=== PATIENT | male | born 1970 | race Caucasian/White ===

== ENCOUNTER 2016-04-01 17:43 | Emergency (ER) | payer OTHER ==
[2016-04-01 18:35] VITALS: BP 157/85; PULSE 105; TEMP 99.7; BMI 31.3
[2016-04-01 18:48] LABS: AUTOMATED BASOPHIL 0.9 % (0-2); AUTOMATED EOSINOPHIL 0.4 % (0-5); AUTOMATED LYMPH 16.2 % (17-44); AUTOMATED MONOCYTE 8.3 % (3-10); AUTOMATED NEUTROPHIL 74.2 % (45-76); MPV 7.4 fL (7.4-10.4)
[2016-04-01 18:59] LABS: BLOOD UREA NITROGEN 13 MG/DL (9-20); CALCIUM 10.2 MG/DL (8.4-10.2); CALCULATED OSMOLALITY 274 MOs/Kg (270-290); CHLORIDE 106 mEq/L (98-107); GLUCOSE 115 MG/DL (70-99); SODIUM LEVEL 142 mEq/L (137-146); TOTAL PROTEIN 8.3 G/DL (6.3-8.2)
[2016-04-01 19:03] LABS: PARTIAL THROMB. TIME 25.7 SEC (22-35)
== END 2016-04-01 21:00 | disposition left against medical advice (07) ==
LOC: ED 17:43
DX: R07.9 Chest pain, unspecified (principal); R06.02 Shortness of breath; Z53.21 Procedure and treatment not carried out due to patient leaving prior to being seen by health care provider
CPT/HCPCS: 80053; 83880; 84484; 85025; 85610; 85730; 99281

== ENCOUNTER 2016-04-22 13:55 | Emergency (ER) | payer SELFPAY ==
[2016-04-22 14:06] VITALS: TEMP 98; BMI 31.0
[2016-04-22 14:25] LABS: ALL NEG? NO
[2016-04-22 14:44] LABS: LEUKOCYTES/URINE NEG (NEGATIVE); NITRITE/URINE NEG (NEGATIVE); RBC/URINE 30-40 (0-2); URINE OCCULT BLOOD 3+ (NEG/TRACE); WBC/URINE 0-2 (0-2)
[2016-04-22 14:46] LABS: MDMA* NEG (NEGATIVE); METHAMPHETAMINES NEG (NEGATIVE); OXYCODONE *POSITIVE* (NEGATIVE)
[2016-04-22 15:23] VITALS: BP 159/97; PULSE 74
[2016-04-22] MEDS ORDERED: KETOROLAC TROMETHAMINE 10 MG TAB PO ONE (15:23)
[2016-04-22] MEDS ORDERED: OXYCODONE HCL 5 MG TABLET PO ONE (15:23)
--- NOTE | 2016-04-22 15:23 | EDPRACDOC ---
- General Information Chief Complaint: Back Pain Stated Complaint: LT SIDED BACK PAIN HX KIDNEY STONES Time Seen by Provider: 04/22/16 14:56 Information Source: Patient Home Medications: Home Medications Clonazepam [Klonopin] 1 mg PO BID PRN 03/07/15 Tramadol HCl [Ultram] 50 mg PO TID 11/16/15 Hydrocodone Bit/Acetaminophen [Hydrocodon-Acetaminophen 5-325] 1 tab PO Q6H PRN #14 tab 12/22/15 Losartan Potassium 100 mg PO DAILY 12/22/15 Paroxetine HCl 25 mg PO DAILY 12/22/15 Tamsulosin HCl [Flomax] 0.4 mg PO QAM #7 cap 12/22/15 Hydrocodone Bit/Acetaminophen [Bruce 5-325 Tablet] 1 each PO Q4H #15 tab Ketorolac Tromethamine [Toradol] 10 mg PO Q6H PRN #12 tab 04/22/16 Tamsulosin HCl [Flomax] 0.4 mg PO QAM #7 cap 04/22/16 Allergies/Adverse Reactions: Allergies Allergy/AdvReac Type Severity Reaction Status Date / Time No Known Allergies Allergy Verified 04/22/16 14:06 - History of Present Illness Onset: 1 DAYS HPI: PT PRESENTS TODAY WITH LEFT FLANK PAIN THAT BEGAN LAST NIGHT. PT STATES PMH OF STONES AND PAIN FEELS THE SAME PREVIOUS. SOME ASSOCIATED NAUSEA. DENIES FEVER, VOMITING/DIARRHEA, ABD PAIN, TESTICULAR PAIN. NO APPARENT DISTRESS. Pain Began: Reports: Spontaneous Pain Location: Reports: CVA Tenderness Pain Severity: Moderate Pain Quality: Reports: Cramping, Sharp Oral Intake: Normal Urinary Output: Normal Modifying Factors: improves with: Nothing Relevant History of: Reports: Urolithiasis Associated Signs and Symptoms: Reports: Hematuria, Nausea ED Past Medical History - History Reviewed Yes Nurses notes reviewed and agree except as marked - Patient Medical History Cardiac History: Reports: Hypertension, Hypercholesterolemia GI/ History: Reports: Kidney Stones Psychological History: Reports: Anxiety. Denies: Depression Additional Past Medical History: Kidney Stones - Family Medical History Reports: Cancer - Social Medical History Smoking Status: Never smoker EDM Review of Systems - Review of Systems ROS Negative Except as Marked: Yes All systems reviewed and were negative except as marked Constitutional: No Symptoms Reported Respiratory: No Symptoms Reported Cardiovascular: No Symptoms Reported Gastrointestinal: No Symptoms Reported Genitourinary: Dysuria, Hematuria, Flank Pain Neurological: No Symptoms Reported Musculoskeletal: No Symptoms Reported Integumentary: No Symptoms Reported - Physical Exam Constitutional: Alert (Awake), No apparent distress Oriented to: Time, Person, Place Last recorded Vital Signs: Last Vital Signs Temp 98 F 04/22/16 14:01 Pulse 89 04/22/16 14:01 Resp 20 04/22/16 14:01 BP 179/80 04/22/16 14:01 Pulse Ox 97 04/22/16 14:01 Oxygen Pulse Oxygen Saturation 97 O2 Device Oxygen Flow Rate Fraction of Inspired Oxygen ( FIO2) - HEENT Head: Normal Eye Exam: Normal Neck: Normal, Denies Pain, Midline - Respiratory/Cardiovascular Respiratory: Normal - CTA Cardiovascular: Normal - GI Palpation: Normal Tenderness: Non tender - Musculoskeletal Back: CVA Tenderness Extremities: Normal - Integumentary Skin: Normal Lymphatics: Normal - Neurologic Cerebellar: Normal Mood Description: Normal Thought: Coherent Perception: Normal - Results Urine Color Yellow 04/22/16 13:10 Urine Clarity Clear 04/22/16 13:10 Urine pH 6.0 (5.0-8.0) 04/22/16 13:10 Ur Specific Warren 1.005 (1.003-1.035) 04/22/16 13:10 Urine Protein Neg (NEG/TRACE) 04/22/16 13:10 Urine Glucose (UA) Neg (NEGATIVE) 04/22/16 13:10 Urine Ketones Neg (NEGATIVE) 04/22/16 13:10 Urine Occult Blood 3+ (NEG/TRACE) H 04/22/16 13:10 Urine Nitrite Neg (NEGATIVE) 04/22/16 13:10 Urine Bilirubin Neg (NEGATIVE) 04/22/16 13:10 Urine Urobilinogen <2.0 MG/DL (0-1) 04/22/16 13:10 Ur Leukocyte Esterase Neg (NEGATIVE) 04/22/16 13:10 Urine RBC 30-40 (0-2) H 04/22/16 13:10 Urine WBC 0-2 (0-2) 04/22/16 13:10 Ur Epithelial Cells Occ 04/22/16 13:10 Urine Mucus Occ (NEG/OCC) 04/22/16 13:10 Urine Opiates Screen Neg (NEGATIVE) 04/22/16 13:10 Ur Oxycodone Screen *positive* (NEGATIVE) H 04/22/16 13:10 Urine Methadone Screen Neg (NEGATIVE) 04/22/16 13:10 Ur Barbiturates Screen Neg (NEGATIVE) 04/22/16 13:10 Ur Tricyclics Screen Neg (NEGATIVE) 04/22/16 13:10 Ur Phencyclidine Scrn Neg (NEGATIVE) 04/22/16 13:10 Ur Amphetamines Screen Neg (NEGATIVE) 04/22/16 13:10 U Methamphetamines Scrn Neg (NEGATIVE) 04/22/16 13:10 Urine MDMA Screen Neg (NEGATIVE) 04/22/16 13:10 U Benzodiazepines Scrn *positive* (NEGATIVE) H 04/22/16 13:10 Urine Cocaine Screen Neg (NEGATIVE) 04/22/16 13:10 Ur THC Screen Neg (NEGATIVE) 04/22/16 13:10 Lab Results 04/22/16 04/22/16 13:10 13:10 Urine Color Yellow Urine Clarity Clear Urine pH 6.0 Ur Specific Warren 1.005 Urine Protein Neg Urine Glucose (UA) Neg Urine Ketones Neg Urine Occult Blood 3+ H Urine Nitrite Neg Urine Bilirubin Neg Urine Urobilinogen <2.0 Ur Leukocyte Esterase Neg Urine RBC 30-40 H Urine WBC 0-2 Ur Epithelial Cells Occ Urine Mucus Occ Urine Opiates Screen Neg Ur Oxycodone Screen *positive* H Urine Methadone Screen Neg Ur Barbiturates Screen Neg Ur Tricyclics Screen Neg Ur Phencyclidine Scrn Neg Ur Amphetamines Screen Neg U Methamphetamines Scrn Neg Urine MDMA Screen Neg U Benzodiazepines Scrn *positive* H Urine Cocaine Screen Neg Ur THC Screen Neg - Additional Information OLD RECORDS REVIEWED; PT HAS HAD SEVERAL CT UROGRAMS IN THE PAST AND HAVE ONLY FOUND SMALL PUNCTATE RENAL STONES W/OUT OBSTRUCTION OR HYDRONEPHROSIS. PT DOES NOT APPEAR TO BE IN DISTRESS. NO FEVER/VOMITING. NO CLINICAL INDICATION FOR FURTHER. Decision Time to Discharge: 15:21 - Departure Disposition: Home Condition: Good Final Diagnosis: Nephrolithiasis, Hematuria Instructions: Kidney Stones (ED) Education/Counseling Given To: Patient Education/Counseling Given Regarding: Diagnosis, Treatment, Follow Up Referrals: Anamaria Hand MD [Primary Care Provider] - One Week Arnulfo Kerr MD [Staff Physician] - One Week Prescriptions: New Hydrocodone Bit/Acetaminophen [Bruce 5-325 Tablet] 1 each PO Q4H #15 tab Ketorolac Tromethamine [Toradol] 10 mg PO Q6H PRN #12 tab PRN Reason: Pain Tamsulosin HCl [Flomax] 0.4 mg PO QAM #7 cap No Action Clonazepam [Klonopin] 1 mg PO BID PRN PRN Reason: Anxiety Tramadol HCl [Ultram] 50 mg PO TID Paroxetine HCl 25 mg PO DAILY Losartan Potassium 100 mg PO DAILY Hydrocodone Bit/Acetaminophen [Hydrocodon-Acetaminophen 5-325] 1 tab PO Q6H PRN #14 tab PRN Reason: Pain Tamsulosin HCl [Flomax] 0.4 mg PO QAM #7 cap Forms: Excuse Note Additional Instructions: DRINK PLENTY OF FLUIDS TO HELP PASS STONE. FOLLOW UP WITH PCP OR UROLOGY IF SYMPTOMS PERSIST. FEEL FREE TO RETURN TO ED FOR ANY WORSE/CONCERNING SYMPTOMS.
== END 2016-04-22 15:32 | disposition home or self-care (01) ==
LOC: ED 13:55 → EDMC 15:32
DX: N20.0 Calculus of kidney (principal); Z87.442 Personal history of urinary calculi; R31.9 Hematuria, unspecified
CPT/HCPCS: 80307; 81001; 99282; J3490

== ENCOUNTER 2016-04-27 14:55 | Emergency (ER) | payer SELFPAY ==
[2016-04-27 15:00] VITALS: TEMP 98.6; BMI 31.6
[2016-04-27] MEDS ORDERED: ONDANSETRON HCL 4 MG/2 ML VIAL IV ONE (15:21)
[2016-04-27] MEDS ORDERED: SODIUM CHLORIDE 0.9% 3 ML FLUSH FLUSH PRN (15:21)
[2016-04-27] MEDS ORDERED: HYDROmorphone 1 MG INJECTION IV ONE (15:21)
[2016-04-27] MEDS ORDERED: NS 1,000 ML IV ONE (15:22)
--- NOTE | 2016-04-27 15:26 | EDPRACDOC ---
- General Information Chief Complaint: Male Urogenital Problems Stated Complaint: KIDNEY STONE Time Seen by Provider: 04/27/16 15:09 Information Source: Patient Mode Of Arrival: Car Home Medications: Home Medications Clonazepam [Klonopin] 1 mg PO BID PRN 03/07/15 Losartan Potassium 100 mg PO DAILY 12/22/15 Paroxetine HCl 25 mg PO DAILY 12/22/15 Ketorolac Tromethamine [Toradol] 10 mg PO Q6H PRN #12 tab 04/22/16 Tamsulosin HCl [Flomax] 0.4 mg PO QAM #7 cap 04/22/16 Atorvastatin Calcium [Lipitor] 20 mg PO QHS 04/27/16 Cholecalciferol (Vitamin D3) [Vitamin D3] 5,000 unit PO DAILY 04/27/16 Ciprofloxacin HCl 500 mg PO BID #20 tablet 04/27/16 Hydrocodone Bit/Acetaminophen [Hydrocodon-Acetaminophen 5-325] 1 - 2 tab PO Q6H PRN #20 tab 04/27/16 Allergies/Adverse Reactions: Allergies Allergy/AdvReac Type Severity Reaction Status Date / Time No Known Allergies Allergy Verified 04/27/16 15:00 - History of Present Illness Onset: 5 days HPI: pt has L flank pain for 5 days. he thought the pain was going away, but it recurred today and is said to be continuous. assoc w nausea. was seen here 5 days ago. Pain Began: Reports: Spontaneous Pain Location: Reports: Flank Pain Severity: 10 Pain Quality: Reports: Sharp Oral Intake: Decreased Urinary Output: Normal Modifying Factors: improves with: Nothing Relevant History of: Reports: Urolithiasis Associated Signs and Symptoms: Reports: Hematuria, Abdominal Pain, Nausea. Denies: Fever ED Past Medical History - History Reviewed Yes Nurses notes reviewed and agree except as marked - Patient Medical History Cardiac History: Reports: Hypertension, Hypercholesterolemia GI/ History: Reports: Kidney Stones Psychological History: Reports: Anxiety. Denies: Depression Additional Past Medical History: Kidney Stones - Family Medical History Reports: Cancer - Social Medical History Smoking Status: Never smoker EDM Review of Systems - Review of Systems Gastrointestinal: Nausea Genitourinary: Hematuria, Flank Pain - Physical Exam Constitutional: No apparent distress, Alert Oriented to: Time, Person, Place Last recorded Vital Signs: Last Vital Signs Temp 98.6 F 04/27/16 14:58 Pulse 128 H 04/27/16 14:58 Resp 20 04/27/16 14:58 BP 172/114 H 04/27/16 14:58 Pulse Ox 96 04/27/16 14:58 Oxygen Pulse Oxygen Saturation 96 O2 Device Room Air Oxygen Flow Rate Fraction of Inspired Oxygen ( FIO2) - HEENT Head: Normal Eye Exam: Normal (PERRL, EOMI, Sclera white) Neck: Normal - Respiratory/Cardiovascular Respiratory: Normal - CTA Cardiovascular: Tachycardia - GI Auscultation: Normal Tenderness: Non tender Vásquez's Sign: Negative - Palpation: NO CVAT - Musculoskeletal Back: Normal Extremities: Normal - Integumentary Skin: Normal - Neurologic Memory Impaired: Normal Motor Function: Normal (Normal tone, Pulses 2+ No cyanosis or edema, FROM) Cranial Nerve: Normal (CN II-X11 intact sensation, strength 5/5) Cerebellar: Normal Mood Description: Normal Perception: Normal - Differential Diagnosis AAA, Pyelonephritis, Urinary obstruction, Urinary tract infection - Re-evaluation Re-evaluation 1 Re-evaluation Time: 16:20 pt stated that his pain is improved, although not completely. bp is 159/93- improved. - Results 04/27/16 15:26 04/27/16 15:26 - Diagnostic Imaging Abdomen Image interpreted by: Radiologist (perinephric stranding, no obstructing ureteral stone.) - Additional Information i reviewed the er visit from 5 days prior Decision Time to Discharge: 16:26 - Departure Yes I personally saw and evaluated the patient. Disposition: Home Condition: Stable Final Diagnosis: Urinary tract infectious disease, Kidney stone on left side Final Diagnosis: (Ruled Out): Urinary tract obstruction Instructions: Urinary Tract Infection in Men (ED) Education/Counseling Given To: Patient Education/Counseling Given Regarding: Diagnosis, Treatment, Follow Up Referrals: Anamaria Hand MD [Primary Care Provider] - One Week Armin Rhodes MD [Staff Physician] - One Week Prescriptions: New Ciprofloxacin HCl 500 mg PO BID #20 tablet Hydrocodone Bit/Acetaminophen [Hydrocodon-Acetaminophen 5-325] 1 - 2 tab PO Q6H PRN #20 tab PRN Reason: Pain Continue Clonazepam [Klonopin] 1 mg PO BID PRN PRN Reason: Anxiety Paroxetine HCl 25 mg PO DAILY Losartan Potassium 100 mg PO DAILY Ketorolac Tromethamine [Toradol] 10 mg PO Q6H PRN #12 tab PRN Reason: Pain Tamsulosin HCl [Flomax] 0.4 mg PO QAM #7 cap Atorvastatin Calcium [Lipitor] 20 mg PO QHS Cholecalciferol (Vitamin D3) [Vitamin D3] 5,000 unit PO DAILY Discontinued Tramadol HCl [Ultram] 50 mg PO TID Forms: Excuse Note
[2016-04-27 15:32] LABS: AUTOMATED BASOPHIL 0.8 % (0-2); AUTOMATED EOSINOPHIL 0.4 % (0-5); AUTOMATED LYMPH 16.2 % (17-44); AUTOMATED MONOCYTE 5.5 % (3-10); AUTOMATED NEUTROPHIL 77.1 % (45-76)
[2016-04-27 15:42] LABS: BLOOD UREA NITROGEN 13 MG/DL (9-20); CALCIUM 9.8 MG/DL (8.4-10.2); CALCULATED OSMOLALITY 271 MOs/Kg (270-290); CHLORIDE 102 mEq/L (98-107); GLUCOSE 143 mg/dL (70-99); SODIUM LEVEL 140 mEq/L (137-146)
[2016-04-27 15:45] LABS: LEUKOCYTES/URINE 1+ (NEGATIVE); NITRITE/URINE NEG (NEGATIVE); RBC/URINE TNTC (0-2); URINE OCCULT BLOOD 3+ (NEG/TRACE)
--- NOTE | 2016-04-27 16:10 | DIRPT ---
CLINICAL DATA: Left flank pain. EXAM: CT ABDOMEN AND PELVIS WITHOUT CONTRAST TECHNIQUE: Multidetector CT imaging of the abdomen and pelvis was performed following the standard protocol without IV contrast. COMPARISON: CT of the abdomen pelvis 11/21/2015 FINDINGS: Lower chest: No acute findings. Hepatobiliary: No mass visualized on this un-enhanced exam. Pancreas: No mass or inflammatory process identified on this un-enhanced exam. Spleen: Within normal limits in size. Adrenals/Urinary Tract: No evidence of right urolithiasis or bilateral hydronephrosis. No definite mass visualized on this un-enhanced exam. There are 2 1-2 mm nonobstructing left renal calculi in the lower pole. There is a 2 cm benign-appearing mostly exophytic right renal cyst off of the lower pole. There is bilateral perirenal fat stranding. Stomach/Bowel: No evidence of obstruction, inflammatory process, or abnormal fluid collections. The appendix is normal. Vascular/Lymphatic: No pathologically enlarged lymph nodes. No evidence of abdominal aortic aneurysm. Reproductive: No mass or other significant abnormality. Other: None. Musculoskeletal: No suspicious bone lesions identified. IMPRESSION: No evidence of obstructive uropathy. Nonobstructive left nephrolithiasis. Bilateral nonspecific perinephric fat stranding. No evidence of acute abnormalities within the solid abdominal organs on this nonenhanced exam. Electronically Signed By: Nikita Sanchez M.D. On: 04/27/2016 16:07
[2016-04-27] MEDS ORDERED: KETOROLAC TROMETH 30 MG/ML VIAL IV ONE (16:23)
[2016-04-27 17:45] VITALS: BP 157/98; PULSE 90
[2016-04-27] MEDS ORDERED: SODIUM CHLORIDE 0.9% 3 ML FLUSH FLUSH SCH (18:00)
== END 2016-04-27 17:40 | disposition home or self-care (01) ==
LOC: ED 14:55
DX: N39.0 Urinary tract infection, site not specified (principal); N20.0 Calculus of kidney
CPT/HCPCS: 36415; 74176; 80048; 81001; 85025; 87077; 87086; 87186; 96361; 96374; 96375; 99284; J1170; J1885; J2405